=== PATIENT | female | born 1970 | race Caucasian/White ===

== ENCOUNTER 2020-08-27 19:50 | Emergency (ER) | payer OTHER ==
[~2020-08-27] VITALS: Ht 152.4 cm; Wt 81.6 kg
[2020-08-27 19:54] VITALS: BP 132/82
--- NOTE | 2020-08-27 20:01 | NUR ---
PT TAKEN TO BED 5
--- NOTE | 2020-08-27 20:10 | NUR ---
Dr. Agosto examining patient.
[2020-08-27] MEDS ORDERED: LIDOCAINE MPF 1% 10 MG/ML VIAL INJ ONE (20:15)
--- NOTE | 2020-08-27 20:26 | NUR ---
See patient assessment for more information. Patient sitting in bed locked in lowest position x1 side rail up. NAD noted,will continue to monitor.
[2020-08-27] MEDS ORDERED: BACITRACIN OINT 500 UNITS/GM PKT TP ONE (20:50)
[2020-08-27] MEDS ORDERED: IBUP-2213 PO (20:55)
--- NOTE | 2020-08-27 20:56 | NUR ---
pt wound covered with non adherent dressing and wrapped with coflex tape after bacitracin applied.
[2020-08-27 21:34] VITALS: BP 132/82
== END 2020-08-27 21:34 | disposition home or self-care (01) ==
LOC: MED 19:50
DX: S81.811A Laceration without foreign body, right lower leg, initial encounter (principal); I10 Essential (primary) hypertension; W22.8XXA Striking against or struck by other objects, initial encounter; Y93.89 Activity, other specified; Y92.89 Other specified places as the place of occurrence of the external cause; Y99.8 Other external cause status
CPT/HCPCS: 12002; 90471; 90715; 99283; J2001

== ENCOUNTER 2020-09-06 20:47 | Emergency (ER) | payer OTHER ==
[~2020-09-06] VITALS: Ht 152.4 cm; Wt 79.4 kg
[~2020-09-06 20:47] MED LIST: IBUP-2213 PO
[2020-09-06 20:58] VITALS: BP 104/67
[2020-09-06] MEDS ORDERED: BACITRACIN OINT 500 UNITS/GM PKT TP ONE (21:45)
== END 2020-09-06 22:12 | disposition home or self-care (01) ==
LOC: MED 20:47
DX: S81.811D Laceration without foreign body, right lower leg, subsequent encounter (principal); I10 Essential (primary) hypertension; Z48.00 Encounter for change or removal of nonsurgical wound dressing; X58.XXXD Exposure to other specified factors, subsequent encounter
CPT/HCPCS: 99282